=== PATIENT | female | born 2000 | race Caucasian/White ===

== ENCOUNTER 2021-12-06 09:34 | Outpatient (REF) | payer OTHER, SELFPAY ==
[2021-12-10 14:25] LABS: Immunoglobulin A 335 mg/dL (47-310)
[2021-12-10 17:36] LABS: Gliadin Deamidated IgG Ab <1.0 U/mL; Transglutaminase Ab IgG <1.0 U/mL; Transglutaminase IgA <1.0 U/mL
[2021-12-12 15:17] LABS: Endomysial IgA Antibody Negative (Negative)
== END 2021-12-06 09:35 | disposition home or self-care (01) ==
LOC: HO.MANLDS 09:34
PROVIDERS: Visit Provider Physician Assistant
DX: K90.41 Non-celiac gluten sensitivity (principal)
CPT/HCPCS: 36415; 82784; 86231; 86258; 86364

== ENCOUNTER 2023-01-14 18:58 | Inpatient (IN) | payer OTHER, SELFPAY ==
--- NOTE | 2023-01-14 19:08 | ED.GENADULT ---
HPI - General Adult General Chief complaint: Psychiatric Symptoms Stated complaint: SI/Mental Health Time Seen by Provider: 01/14/23 19:26 Source: patient Mode of arrival: ambulatory Limitations: no limitations History of Present Illness HPI narrative: Patient comes to the emergency room complaining of anxiety and depression. Patient states that for couple of weeks she has been feeling suicidal, plan to take pills and overdosing. Patient states that she has history of cutting, history of anxiety and depression. Patient states that recently she was started on an anti anxiety medication, thinks that her dose is too low. Patient has been having anxiety and depression since the patient was in middle school. At this time, patient complaining of suicidal ideation, anxiety and depression, no homicidal ideation. Patient states that she recently broke up with her boyfriend and was a ?icing on the cake that make her consider hurting herself and come to the hospital. Related Data Home Medications Medication Instructions Recorded Confirmed bupropion HCl 150 mg 24 hr tablet, 150 mg PO DAILY 01/14/23 01/14/23 extended release sertraline 25 mg tablet 25 mg PO DAILY 01/14/23 01/14/23 Allergies Allergy/AdvReac Type Severity Reaction Status Date / Time Penicillins Allergy Severe Anaphylaxis Verified 01/14/23 19:13 Review of Systems Review of Systems: Constitutional : No Weight loss, No Fever, No Chills, No Night Sweats, No Fatigue, No Malaise ENT/Mouth : No Hearing loss, No Ear Pain, No Nasal Congestion, No Sinus Pain, No Hoarseness, No sore throat, No Rhinorrhea, No Swallowing Difficulty Eyes: No Eye Pain, No Swelling, No Redness, No Foreign Body, No Discharge, No Vision Changes Cardiovascular : No Chest Pain, No SOB, No Dyspnea on Exertion, No Orthopnea, No Edema, No Palpitations Respiratory : No Cough, No Sputum, No Wheezing, No Smoke Exposure, No Dyspnea Gastrointestinal : No Nausea, No Vomiting, No Diarrhea, No Constipation, No abdominal Pain, No Hematochezia, No Melena Genitourinary : no irregular bleeding, No Dysuria, No Urinary Frequency, No Hematuria, No Urinary Incontinence, No Urgency, No Flank Pain, No Urinary Flow Changes, No Hesitancy Musculoskeletal : No joint pain, No Myalgias, No Joint Swelling Skin : No Skin Lesions, No rash Neuro : No Weakness, No Numbness, No Paresthesias, No Loss of Consciousness, No Dizziness, No Headache Psych : Complaining of anxiety and depression, suicidal ideation, no homicidal ideation Heme/Lymph: No Bruising, No Bleeding,No Lymphadenopathy Endocrine : No Polyuria, No Polydipsia, No Temperature Intolerance [facility] Past Medical History Medical History (Updated 01/14/23 @ 22:03 by Mendy Villareal MD) Anxiety and depression Social History Social History Advance Directives: No Advance Directives Information Provided: No Physical Exam ED Vital Signs: Vital Signs - 24 hr 01/14/23 19:12 01/15/23 05:55 Temperature 98.0 F 98.2 F Pulse Rate 102 H 74 Respiratory Rate 16 16 Blood Pressure 144/95 H 135/84 Pulse Oximetry 97 98 Oxygen Delivery Method Room Air Room Air BMI result Body Mass Index 72.2 Const Other: Appearance: Alert. Oriented X3. No acute distress. Eyes: Pupils equal, round and reactive to light. ENT: Pharynx normal. Neck: Normal inspection. Neck supple. No lymph nodes noted. No crepitus CVS: Normal heart rate and rhythm. Pulses normal. Normal S1 and S2 Respiratory: No respiratory distress. Breath sounds normal. No Wheezing. No rales Abdomen: Soft and nontender. No rigidity. No distention. Skin: Skin warm and dry. Normal skin color. Normal skin turgor. Extremities: No lower extremity edema. No Lacerations. No Rash Neuro: Oriented X 3. No motor deficit. No sensory deficit. Moving all extremities. No slurred speech. CN 2 through 12 grossly intact Psych: calm, cooperative, normal affect Course Course Course Narrative: RME- 22 year old female presents for evaluation of suicidal ideation. Symptoms worsening over the last week related to a break up. Patient endorses superficial cutting to arms and legs. Plan to overdose. Patient brought back to the behavioral POD after triage Reevaluation(s) Reevaluation #1: Physician observation continued she has been in observation since midnight. no acute events overnight currently asleep, VS stable, pending CARE team input. Medical Decision Making Medical Decision Making [facility] Narrative: -my interpretation of patient's labs: No acute abnormality in hematology chemistry urine toxicology. -care team consult pending -physician observation started at 22:00 -sign-out given to Dr. Liu Differential Diagnosis Differential Diagnoses: The differential diagnosis associated with the presentation includes (Anxiety, depression, substance abuse) Lab Data 01/14/23 19:38 01/14/23 19:38 Labs: Lab Results 01/14/23 01/14/23 01/14/23 Range/Units 19:38 19:38 19:38 WBC 7.8 (4.8-10.8) X10*3/uL RBC 4.65 (4.20-5.50) X10*6/uL Hgb 14.5 (12.0-16.0) g/dl Hct 43.0 (37.0-47.0) % MCV 92.5 (80.0-98.0) fL MCH 31.2 (27.0-33.0) pg MCHC 33.7 (31.0-35.0) g/dl RDW 12.9 (11.0-16.0) % Plt Count 310 (160-400) X10*3/uL MPV 10.1 (9.4-12.3) fL Immature Gran % (Auto) 0.1 (0.0-0.4) % Neut % (Auto) 69.2 (45-73) % Lymph % (Auto) 21.8 (20-40) % [place] % (Auto) 7.0 (2-11) % Eos % (Auto) 1.3 (0-4) % Baso % (Auto) 0.6 (0-2) % Lymph # (Auto) 1.7 (1.2-4.9) X10*3/uL [place] # (Auto) 0.5 (0.1-1.2) X10*3/uL Eos # (Auto) 0.1 (0.0-0.4) X10*3/uL Baso # (Auto) 0.1 (0.0-0.2) X10*3/uL Abs Immat Gran (auto) 0.01 (0.00-0.03) X10*3/uL Absolute Neuts (auto) 5.4 (2.0-8.3) x10*3/uL Absolute Nucleated RBC 0.000 (0.0-0.012) X10*3/uL Nucleated RBC % (auto) 0.0 (0.0-0.2) /100WBC Sodium 140 (135-145) mmol/L Potassium 3.9 (3.3-5.1) mmol/L Chloride 106 (96-108) mmol/L Carbon Dioxide 25 (22-29) mmol/L Anion Gap 13 (12-20) BUN 11 (9-16) mg/dL Creatinine 0.80 (0.5-1.4) mg/dL Estim Creat Clear Calc 183.6 Estimated GFR > 60 Random Glucose 98 (60-115) mg/dL Calcium 9.4 (8.4-10.2) mg/dL Total Bilirubin 0.4 (0.0-1.0) mg/dL AST 17 (5-31) U/L ALT 18 (0-31) U/L Alkaline Phosphatase 55 (39-117) U/L Total Protein 7.2 (6.5-8.0) g/dL Albumin 4.5 (3.5-5.0) g/dL Urine Color Urine Appearance Urine pH (5.0-9.0) Ur Specific [place] (1.005-1.025) Urine Protein (Neg-Trace) mg/dL Urine Glucose (UA) (Negative) mg/dL Urine Ketones (Negative) mg/dL Urine Blood (Negative) Urine Nitrite (Negative) Ur Leukocyte Esterase (Negative) Urine Test (NEGATIVE) Salicylates < 5.0 L (15-30) mg/dL Urine Opiates Screen (Not Detect) Urine Fentanyl Screen (Not Detect) Acetaminophen < 17 (<30) mcg/mL Ur Barbiturates Screen (Not Detect) Ur Phencyclidine Scrn (Not Detect) Ur Amphetamines Screen (Not Detect) U Benzodiazepines Scrn (Not Detect) Urine Cocaine Screen (Not Detect) U Marijuana (THC) Screen (Not Detect) Ethyl Alcohol < 10 mg/dL 01/14/23 01/14/23 01/14/23 Range/Units 19:38 19:40 19:40 WBC (4.8-10.8) X10*3/uL RBC (4.20-5.50) X10*6/uL Hgb (12.0-16.0) g/dl Hct (37.0-47.0) % MCV (80.0-98.0) fL MCH (27.0-33.0) pg MCHC (31.0-35.0) g/dl RDW (11.0-16.0) % Plt Count (160-400) X10*3/uL MPV (9.4-12.3) fL Immature Gran % (Auto) (0.0-0.4) % Neut % (Auto) (45-73) % Lymph % (Auto) (20-40) % [place] % (Auto) (2-11) % Eos % (Auto) (0-4) % Baso % (Auto) (0-2) % Lymph # (Auto) (1.2-4.9) X10*3/uL [place] # (Auto) (0.1-1.2) X10*3/uL Eos # (Auto) (0.0-0.4) X10*3/uL Baso # (Auto) (0.0-0.2) X10*3/uL Abs Immat Gran (auto) (0.00-0.03) X10*3/uL Absolute Neuts (auto) (2.0-8.3) x10*3/uL Absolute Nucleated RBC (0.0-0.012) X10*3/uL Nucleated RBC % (auto) (0.0-0.2) /100WBC Sodium (135-145) mmol/L Potassium (3.3-5.1) mmol/L Chloride (96-108) mmol/L Carbon Dioxide (22-29) mmol/L Anion Gap (12-20) BUN (9-16) mg/dL Creatinine (0.5-1.4) mg/dL Estim Creat Clear Calc Estimated GFR Random Glucose (60-115) mg/dL Calcium (8.4-10.2) mg/dL Total Bilirubin (0.0-1.0) mg/dL AST (5-31) U/L ALT (0-31) U/L Alkaline Phosphatase (39-117) U/L Total Protein (6.5-8.0) g/dL Albumin (3.5-5.0) g/dL Urine Color Yellow Urine Appearance Clear Urine pH 6.0 (5.0-9.0) Ur Specific [place] >= 1.030 H (1.005-1.025) Urine Protein Trace (Neg-Trace) mg/dL Urine Glucose (UA) Negative (Negative) mg/dL Urine Ketones Trace (Negative) mg/dL Urine Blood Negative (Negative) Urine Nitrite Negative (Negative) Ur Leukocyte Esterase Negative (Negative) Urine Test NEGATIVE (NEGATIVE) Salicylates (15-30) mg/dL Urine Opiates Screen Not Detected (Not Detect) Urine Fentanyl Screen Not Detected (Not Detect) Acetaminophen (<30) mcg/mL Ur Barbiturates Screen Not Detected (Not Detect) Ur Phencyclidine Scrn Not Detected (Not Detect) Ur Amphetamines Screen Not Detected (Not Detect) U Benzodiazepines Scrn Not Detected (Not Detect) Urine Cocaine Screen Not Detected (Not Detect) U Marijuana (THC) Screen Not Detected (Not Detect) Ethyl Alcohol mg/dL Discharge Plan Discharge Clinical Impression: Depression, Acute anxiety Patient Disposition: Still a Patient Prescriptions: No Action sertraline 25 mg tablet 25 mg PO DAILY bupropion HCl 150 mg tablet extended release 24 hr 150 mg PO DAILY Interventions: [place]-Suicide Risk Severity Scale Last Done: 01/15/23 00:55
[2023-01-14 19:12] VITALS: BP 144/95; PULSE 102; RESP 16; TEMP 36.7; O2SAT 97; BMI 72.2
[2023-01-14 19:45] LABS: MANUAL DIFF FLAG NO
[2023-01-14 19:50] LABS: Appearance Urine Clear; Color Urine Yellow; Glucose Urine UA Negative (Negative); Leukocyte Esterase Urine Negative (Negative); Nitrite Urine Negative (Negative); Specific Gravity - Urine >= 1.030 (1.005-1.025); UPreg QC Valid YES; Urine Blood Negative (Negative); Urine Ketones Trace mg/dL (Negative); Urine Pregnancy NEGATIVE (NEGATIVE); Urine Protein Trace mg/dL (Neg-Trace)
[2023-01-14 19:52] LABS: Basophils Absolute Auto 0.1 X10*3/uL (0.0-0.2); Basophils Percent Auto 0.6 % (0-2); Eosinophils Absolute Auto 0.1 X10*3/uL (0.0-0.4); Eosinophils Percent Auto 1.3 % (0-4); Hemoglobin 14.5 g/dl (12.0-16.0); Imm Gran Abs Auto 0.01 X10*3/uL (0.00-0.03); Imm Gran Pct Auto 0.1 % (0.0-0.4); Lymphocytes Absolute Auto 1.7 X10*3/uL (1.2-4.9); Lymphocytes Percent Auto 21.8 % (20-40); Mean Corpuscular HGB Conc 33.7 g/dl (31.0-35.0); Mean Corpuscular Hemoglobin 31.2 pg (27.0-33.0); Mean Corpuscular Volume 92.5 fL (80.0-98.0); Mean Platelet Volume 10.1 fL (9.4-12.3); Monocytes Absolute Auto 0.5 X10*3/uL (0.1-1.2); Neutrophils Absolute Auto 5.4 x10*3/uL (2.0-8.3); Neutrophils Percent Auto 69.2 % (45-73); Platelet Count 310 X10*3/uL (160-400); Red Blood Count 4.65 X10*6/uL (4.20-5.50); Red Cell Distribution Width 12.9 % (11.0-16.0); White Blood Count 7.8 X10*3/uL (4.8-10.8)
[2023-01-14 20:02] LABS: Amphetamine Screen Urine Not Detected (Not Detect); Barbiturates, Urine Not Detected (Not Detect); Benzodiazepines Screen Urine Not Detected (Not Detect); Cannabinoid Screen Urine Not Detected (Not Detect); Cocaine Screen Urine Not Detected (Not Detect); Fentanyl, urine Not Detected (Not Detect); Opiate Screen Urine Not Detected (Not Detect); Phencyclidine Screen Urine Not Detected (Not Detect)
[2023-01-14 20:08] LABS: Acetaminophen LAB < 17 mcg/mL (<30); Alanine Aminotransferase 18 U/L (0-31); Albumin Level 4.5 g/dL (3.5-5.0); Alkaline Phosphatase 55 U/L (39-117); Anion Gap 13 (12-20); Aspartate Amino Transferase 17 U/L (5-31); Bilirubin Total 0.4 mg/dL (0.0-1.0); Blood Urea Nitrogen 11 mg/dL (9-16); Calcium 9.4 mg/dL (8.4-10.2); Carbon Dioxide 25 mmol/L (22-29); Chloride 106 mmol/L (96-108); Creatinine Clr Calc Pharmacy 183.6; Estimated Glomerular Filt Rate > 60; Ethanol < 10 mg/dL; Glucose Random 98 mg/dL (60-115); Potassium 3.9 mmol/L (3.3-5.1); Salicylate < 5.0 mg/dL (15-30); Sodium 140 mmol/L (135-145); Total Protein 7.2 g/dL (6.5-8.0)
[2023-01-15 05:55] VITALS: BP 135/84; PULSE 74; RESP 16; TEMP 36.8; O2SAT 98
--- NOTE | 2023-01-15 06:02 | PC.NURSE ---
Patient slept through the night, no distress observed/reported, pending care team evaluation, VSS, behavior non concerning, med rec completed/pending provider's approval, labs completed/resulted, will continue to monitor.
[2023-01-15 11:48] LABS: COVID-19 Test Negative (Negative); IDNOW Serial# BCCEAD1C
[2023-01-15 12:05] VITALS: BP 119/73; PULSE 73; RESP 16; TEMP 36.4; O2SAT 98
--- NOTE | 2023-01-15 14:31 | PC.NURSE ---
Nafisa remained in her room resting for most of the shift. When engaged she was pleasant and cooperative. Nafisa had a visit from a friend and reports it went really well. No medications req or rec.
[2023-01-15 16:05] VITALS: BP 131/85; PULSE 81; TEMP 36.6
[2023-01-15] MEDS: hydrOXYzine HCL 25 MG TABLET PO ×2 (16:39→20:12)
--- NOTE | 2023-01-15 18:21 | PC.ADMIT ---
Nafisa was admitted to from [facility] P[facility] on a CV for Depression and SI. Pt self-presented with a worsening complaint of depression, anxiety and SI with a plan to ingest her anti-anxiety medications. Pt reported last Thursday she was holding a handful of her anxiety medications having thoughts of taking them all. Pt attributes worsening sx to a recent breakup. Pt is A+Ox4, pt hygiene is unremarkable, pt is pleasant and cooperative. Pt is anxious and depressed, affect is noncongruent as cheerful. Pt reports feeling nervous as it is her first psychiatric IPLOC. Pt denies SI/HI/AH/VH at this time. Pt verbalizes ability to come to staff if feeling suicidal or unsafe. PT thought process is linear and intact. Pt has had recent weight loss, reported she was on weight watchers and lost weight, but after finishing weight watchers lost more weight due to a decreased appetite. Pt reports over sleeping and still feeling tired. Pt is focused on treatment and getting the help she needs. Pt uses THC when not depressed, last use was months ago. Pt has a rash on left breast that spreads across her abdomen and up to her neck, accounts payable professional provider made aware. Pt signed all paper work and legals and reports feeling safe on the unit. Pt placed on 15 min checks. Provider made aware of admission, orders are placed. Begin treatment plan and monitor for safety.
--- NOTE | 2023-01-15 19:15 | PC.NURSE ---
Hospitalist application support intern notified of consult for rash on L breast spread across abdomen to neck.
--- NOTE | 2023-01-15 19:46 | PM.EVENT ---
Event Note Date of Service: 01/15/23 Event Note: We are asked to see this patient regarding a rash. This rash appeared about 2 weeks ago. Not associated with any new medications. Slightly itchy, spreading from her breath she has some spots on her abdomen and neck. No pain, no fever, no recent sick contacts, no recent travel, no recent outdoor activity. On exam patient is alert oriented, no apparent distress, able to answer questions appropriately See pictures for rash Likely Fungal infection Will order clotrimazole cream b.i.d. to be applied on rash until resolved Time Spent With Patient Time: Total time managing care of this patient today ____ minutes.
[2023-01-15] MEDS: traZODone HCL 50 MG TABLET PO (20:12)
[2023-01-15] MEDS: Clotrimazole 1 % Cream 15 GM TUBE 1 APPL TOPICAL (20:52)
[2023-01-16 08:10] VITALS: BP 142/76; PULSE 86; RESP 18; TEMP 36.5; O2SAT 98
[2023-01-16] MEDS: buPROPion HCl XL 150 MG TAB.ER.24H PO (09:01)
[2023-01-16] MEDS: Clotrimazole 1 % Cream 15 GM TUBE 1 APPL TOPICAL ×2 (09:03→19:59)
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
--- NOTE | 2023-01-16 12:39 | MHC.CARE ---
initial precertification [facility] ph: [phone] f: [phone] precert# [id number] Precert starts 01/15/23 and Anaya will follow up with concurrent review
[2023-01-16 19:53] VITALS: BP 116/58; PULSE 84; TEMP 36.9
[2023-01-16] MEDS: traZODone HCL 50 MG TABLET PO (19:58)
[2023-01-16] MEDS: cloNIDine HCL 0.1 MG TABLET PO (19:58)
[2023-01-17] MEDS: cloNIDine HCL 0.1 MG TABLET PO ×2 (09:28→21:44)
[2023-01-17] MEDS: buPROPion HCl XL 300 MG TAB.ER.24H PO (09:29)
[2023-01-17] MEDS: Clotrimazole 1 % Cream 15 GM TUBE 1 APPL TOPICAL (09:31)
[2023-01-17 09:32] VITALS: BP 120/73; PULSE 84; RESP 18; TEMP 36.2
--- NOTE | 2023-01-17 15:50 | P.PNPSI_ITS ---
Subjective Subjective Date of Service: 01/17/23 Reason For Visit: depression Subjective Notes: Conditional Voluntary Interim History: Met patient. Discussed with Nursing. Chart reviewed. Overall patient reports feeling positive regarding Wellbutrin increase. Feeling less depressed and less anxious. Spending more time in the milieu. Sleep energy and appetite good. No suicidal thoughts. Medication Compliance: Yes Side effects from medications: No Attending Groups: Yes Review of Systems Acute medical concerns: No Review of Systems Review of Systems Yes all other systems are reviewed and are negative Mental Status Exam Mental Status Exam Narrative: Pleasant. Engaged. Fairly presented. Organized. Less anxious. No SI. No HI. No agitation psychosis. Insight and judgment fair Diagnostics Vital Signs (24Hr): Vital Signs - 24 hr 01/16/23 19:53 01/17/23 09:32 Temperature 98.4 F 97.2 F Pulse Rate 84 84 Respiratory Rate 18 Blood Pressure 116/58 L 120/73 Oxygen Delivery Method Room Air BMI result Body Mass Index 72.2 Labs 01/14/23 19:38 01/14/23 19:38 Medications Medications Current Medications Acetaminophen (Acetaminophen 325 Mg Tablet) 650 mg PO Q6H PRN PRN Reason: Headache/Pain Mild Scale (1-3) Al Hydroxide/Mg Hydroxide (Magnesium Hydrox/Alum Hydrox 30 Ml Oral.Susp) 30 ml PO Q6H PRN PRN Reason: Heartburn/Nausea Bupropion HCl (Bupropion Hcl Xl 300 Mg Tab.Er.24h) 300 mg PO DAILY PETROS Last Admin: 01/17/23 09:29 Dose: 300 mg Clonidine HCl (Clonidine Hcl 0.1 Mg Tablet) 0.1 mg PO Q4H PRN; Protocol PRN Reason: anxiety Last Admin: 01/16/23 19:58 Dose: 0.1 mg Clonidine HCl (Clonidine Hcl 0.1 Mg Tablet) 0.1 mg PO DAILY PETROS; Protocol Last Admin: 01/17/23 09:28 Dose: 0.1 mg Clotrimazole (Clotrimazole 1 % Cream 15 Gm Tube) 1 appl TOPICAL BID PETROS; Protoc ol Last Admin: 01/17/23 09:31 Dose: 1 appl Hydroxyzine HCl (Hydroxyzine Hcl 25 Mg Tablet) 25 mg PO Q6H PRN PRN Reason: Anxiety Last Admin: 01/15/23 16:39 Dose: 25 mg Magnesium Hydroxide (Milk Of Magnesia 30 Ml Oral.Susp) 30 ml PO DAILY PRN PRN Reason: Constipation Nicotine Polacrilex (Nicotine Polacrilex 2 Mg Gum) 4 mg BUCCAL Q2H PRN PRN Reason: Nicotine Cravings Trazodone HCl (Trazodone Hcl 50 Mg Tablet) 50 mg PO BEDTIME MRX1 PRN PRN Reason: Insomnia Last Admin: 01/16/23 19:58 Dose: 50 mg Allergies Allergies Allergy/AdvReac Type Severity Reaction Status Date / Time Penicillins Allergy Severe Anaphylaxis Verified 01/14/23 19:13 Assessment & Plan Assessment & Plan (1) MDD (major depressive disorder), recurrent severe, without psychosis: Status: Acute Code(s): F33.2 - Major depressive disorder, recurrent severe without psychotic features (2) PTSD (post-traumatic stress disorder): Status: Acute Code(s): F43.10 - Post-traumatic stress disorder, unspecified (3) ADHD: Status: Acute Code(s): F90.9 - Attention-deficit hyperactivity disorder, unspecified type (4) Panic disorder with agoraphobia: Status: Acute Code(s): F40.01 - Agoraphobia with panic disorder Plan Patient is a 22 yo female with history of depression, PTSD, social anxiety, ADHD who presents for worsening depression and SI, with plan and nearing intent, in the face of untreated depression and psychosocial stressors. -history of depression starting in very early adolescents, untreated other than therapy (which was partially helpful); depression worsened by severe bullying in high school, with subsequent PTSD. Contributory is panic attacks with intermittent mild agoraphobia. Patient has ADHD and was on Adderall in the past however it worsened anxiety so discontinued, which could also be contribute to depression. -Thankfully supportive relationship with family; no drug or alcohol abuse. Patient seeking treatment. Plan: CV Q 15 minute checks 1. Increase Wellbutrin XL to 300 mg daily; patient was started on 150 mg for weight loss; while this would not be the 1st choice for depression, she is already on it, tolerating current dose and her father's depression has been well treated by same medication 2. Start clonidine scheduled at bedtime for nightmares and p.r.n. during the day for anxiety; patient has tolerated the past -gather collateral -help w/ aftercare; possible Partial day program 01/17/2023: No changes to treatment plan Reason for continued inpatient stay Substantial Risk for: harm to self Time Spent With Patient Time: Total time managing care of this patient today ____ minutes.
[2023-01-17 18:00] VITALS: BP 122/78; PULSE 78; RESP 16; TEMP 36.6; O2SAT 98
[2023-01-17] MEDS: traZODone HCL 50 MG TABLET PO (21:44)
[2023-01-18 08:34] VITALS: BP 109/59; PULSE 93; RESP 18; TEMP 36.2; O2SAT 97
[2023-01-18] MEDS: cloNIDine HCL 0.1 MG TABLET PO (08:35)
[2023-01-18] MEDS: buPROPion HCl XL 300 MG TAB.ER.24H PO (08:35)
[2023-01-18] MEDS: Clotrimazole 1 % Cream 15 GM TUBE 1 APPL TOPICAL ×2 (09:10→20:59)
--- NOTE | 2023-01-18 12:45 | HO.PSYCHPN ---
Subjective Subjective Date of Service: 01/18/23 Reason For Visit: depression Interim History: Met patient. Discussed with Nursing. Chart reviewed. Overall patient continues to report feeling positive regarding Wellbutrin increase. Feeling less depressed and less anxious. Sleep energy and appetite good. No suicidal thoughts. Started to consider dispo planning Medication Compliance: Yes Side effects from medications: No Attending Groups: Yes Review of Systems Acute medical concerns: No Review of Systems Review of Systems Yes all other systems are reviewed and are negative Mental Status Exam Mental Status Exam Narrative: Pleasant. Engaged. Fairly presented. Organized. Less anxious. No SI. No HI. No agitation psychosis. Insight and judgment fair Diagnostics Vital Signs (24Hr): Vital Signs - 24 hr 01/17/23 18:00 01/18/23 08:34 Temperature 97.8 F 97.2 F Pulse Rate 78 93 Respiratory Rate 16 18 Blood Pressure 122/78 109/59 L Pulse Oximetry 98 97 Oxygen Delivery Method Room Air Room Air BMI result Body Mass Index 72.2 Labs 01/14/23 19:38 01/14/23 19:38 Medications Medications Current Medications Acetaminophen (Acetaminophen 325 Mg Tablet) 650 mg PO Q6H PRN PRN Reason: Headache/Pain Mild Scale (1-3) Al Hydroxide/Mg Hydroxide (Magnesium Hydrox/Alum Hydrox 30 Ml Oral.Susp) 30 ml PO Q6H PRN PRN Reason: Heartburn/Nausea Bupropion HCl (Bupropion Hcl Xl 300 Mg Tab.Er.24h) 300 mg PO DAILY PETROS Last Admin: 01/18/23 08:35 Dose: 300 mg Clonidine HCl (Clonidine Hcl 0.1 Mg Tablet) 0.1 mg PO Q4H PRN; Protocol PRN Reason: anxiety Last Admin: 01/17/23 21:44 Dose: 0.1 mg Clonidine HCl (Clonidine Hcl 0.1 Mg Tablet) 0.1 mg PO DAILY PETROS; Protocol Last Admin: 01/18/23 08:35 Dose: 0.1 mg Clotrimazole (Clotrimazole 1 % Cream 15 Gm Tube) 1 appl TOPICAL BID PETROS; Protocol Last Admin: 01/18/23 09:10 Dose: 1 appl Hydroxyzine HCl (Hydroxyzine Hcl 25 Mg Tablet) 25 mg PO Q6H PRN PRN Reason: Anxiety Last Admin: 01/15/23 16:39 Dose: 25 mg Magnesium Hydroxide (Milk Of Magnesia 30 Ml Oral.Susp) 30 ml PO DAILY PRN PRN Reason: Constipation Nicotine Polacrilex (Nicotine Polacrilex 2 Mg Gum) 4 mg BUCCAL Q2H PRN PRN Reason: Nicotine Cravings Trazodone HCl (Trazodone Hcl 50 Mg Tablet) 50 mg PO BEDTIME MRX1 PRN PRN Reason: Insomnia Last Admin: 01/17/23 21:44 Dose: 50 mg Allergies Allergies Allergy/AdvReac Type Severity Reaction Status Date / Time Penicillins Allergy Severe Anaphylaxis Verified 01/14/23 19:13 Assessment & Plan Assessment & Plan (1) MDD (major depressive disorder), recurrent severe, without psychosis: Status: Acute Code(s): F33.2 - Major depressive disorder, recurrent severe without psychotic features (2) PTSD (post-traumatic stress disorder): Status: Acute Code(s): F43.10 - Post-traumatic stress disorder, unspecified (3) ADHD: Status: Acute Code(s): F90.9 - Attention-deficit hyperactivity disorder, unspecified type (4) Panic disorder with agoraphobia: Status: Acute Code(s): F40.01 - Agoraphobia with panic disorder Plan Patient is a 22 yo female with history of depression, PTSD, social anxiety, ADHD who presents for worsening depression and SI, with plan and nearing intent, in the face of untreated depression and psychosocial stressors. -history of depression starting in very early adolescents, untreated other than therapy (which was partially helpful); depression worsened by severe bullying in high school, with subsequent PTSD. Contributory is panic attacks with intermittent mild agoraphobia. Patient has ADHD and was on Adderall in the past however it worsened anxiety so discontinued, which could also be contribute to depression. -Thankfully supportive relationship with family; no drug or alcohol abuse. Patient seeking treatment. Plan: CV Q 15 minute checks 1. Increase Wellbutrin XL to 300 mg daily; patient was started on 150 mg for weight loss; while this would not be the 1st choice for depression, she is already on it, tolerating current dose and her father's depression has been well treated by same medication 2. Start clonidine scheduled at bedtime for nightmares and p.r.n. during the day for anxiety; patient has tolerated the past -gather collateral -help w/ aftercare; possible Partial day program 01/18/2023: Adjusted hydroxyzine dose, otherwise no changes to treatment plan Reason for continued inpatient stay Substantial Risk for: harm to self Time Spent With Patient Time: Total time managing care of this patient today ____ minutes.
[2023-01-18 18:00] VITALS: BP 118/76; PULSE 99; RESP 16; TEMP 36; O2SAT 98
[2023-01-18] MEDS: traZODone HCL 50 MG TABLET PO (20:55)
[2023-01-18] MEDS: hydrOXYzine HCL 50 MG TABLET PO (20:55)
[2023-01-19] MEDS: cloNIDine HCL 0.1 MG TABLET PO (07:54)
[2023-01-19 07:55] VITALS: BP 104/60; PULSE 78; RESP 16; TEMP 36.1; O2SAT 97
[2023-01-19] MEDS: buPROPion HCl XL 300 MG TAB.ER.24H PO (07:55)
--- NOTE | 2023-01-19 09:50 | P.PNPSI_ITS ---
Subjective Subjective Date of Service: 01/19/23 Reason For Visit: depression Interim History: With patient; discussed with team; reviewed progress notes Patient reports feeling much better. She feels that increased Wellbutrin has significantly improved her mood and that depression is abating. Denies any SI at all. She says anxiety remains however clonidine has been helping and at this point patient would like to see if therapy can help resolve anxiety further rather than start another medication at this time. Patient feels ready for discharge. Her boyfriend has been visiting daily and she feels ready to return home. Looking for to outpatient therapy and services. Mental Status Exam Mental Status Exam Narrative: Pt is alert and oriented; behavior is cooperative, friendly and calm; patient is not in distress; dressed in casual attire with adequate hygiene; mood is described as better and affect congruent; eye contact appropriate, brighter; Speech is normal rate, volume and prosody and not pressured; no psychomotor retardation present; thought process is organized and goal directed; Thought content is feeling better and ready for discharge; outpatient treatment; otherwise pertinent to relevant topics and without any delusional content, paranoid ideations or grandiosity; no SI/no HI. There is no evidence of perceptual disturbance and denies AVH. Patients insight and judgment fair and adequate. Diagnostics Vital Signs (24Hr): Vital Signs - 24 hr 01/18/23 18:00 01/19/23 07:55 Temperature 96.8 F 97 F Pulse Rate 99 78 Respiratory Rate 16 16 Blood Pressure 118/76 104/60 Pulse Oximetry 98 97 Oxygen Delivery Method Room Air Room Air BMI result Body Mass Index 72.2 Labs 01/14/23 19:38 01/14/23 19:38 Medications Medications Current Medications Acetaminophen (Acetaminophen 325 Mg Tablet) 650 mg PO Q6H PRN PRN Reason: Headache/Pain Mild Scale (1-3) Al Hydroxide/Mg Hydroxide (Magnesium Hydrox/Alum Hydrox 30 Ml Oral.Susp) 30 ml PO Q6H PRN PRN Reason: Heartburn/Nausea Bupropion HCl (Bupropion Hcl Xl 300 Mg Tab.Er.24h) 300 mg PO DAILY PETROS Last Admin: 01/19/23 07:55 Dose: 300 mg Clonidine HCl (Clonidine Hcl 0.1 Mg Tablet) 0.1 mg PO Q4H PRN; Protocol PRN Reason: anxiety Last Admin: 08/26/23 21:44 Dose: 0.1 mg Clonidine HCl (Clonidine Hcl 0.1 Mg Tablet) 0.1 mg PO DAILY PETROS; Protocol Last Admin: 01/19/23 07:54 Dose: 0.1 mg Clotrimazole (Clotrimazole 1 % Cream 15 Gm Tube) 1 appl TOPICAL BID PETROS; Protocol Last Admin: 01/19/23 08:42 Dose: Not Given Hydroxyzine HCl (Hydroxyzine Hcl 50 Mg Tablet) 50 mg PO Q6H PRN PRN Reason: Anxiety Last Admin: 01/18/23 20:55 Dose: 50 mg Magnesium Hydroxide (Milk Of Magnesia 30 Ml Oral.Susp) 30 ml PO DAILY PRN PRN Reason: Constipation Nicotine Polacrilex (Nicotine Polacrilex 2 Mg Gum) 4 mg BUCCAL Q2H PRN PRN Reason: Nicotine Cravings Trazodone HCl (Trazodone Hcl 50 Mg Tablet) 50 mg PO BEDTIME MRX1 PRN PRN Reason: Insomnia Last Admin: 01/18/23 20:55 Dose: 50 mg Allergies Allergies Allergy/AdvReac Type Severity Reaction Status Date / Time Penicillins Allergy Severe Anaphylaxis Verified 01/14/23 19:13 Assessment & Plan Assessment & Plan (1) MDD (major depressive disorder), recurrent severe, without psychosis: Status: Acute Code(s): F33.2 - Major depressive disorder, recurrent severe without psychotic features (2) PTSD (post-traumatic stress disorder): Status: Acute Code(s): F43.10 - Post-traumatic stress disorder, unspecified (3) ADHD: Status: Acute Code(s): F90.9 - Attention-deficit hyperactivity disorder, unspecified type (4) Panic disorder with agoraphobia: Status: Acute Code(s): F40.01 - Agoraphobia with panic disorder Plan Patient is a 22 yo female with history of depression, PTSD, social anxiety, ADHD who presents for worsening depression and SI, with plan and nearing intent, in the face of untreated depression and psychosocial stressors. -history of depression starting in very early adolescents, untreated other than therapy (which was partially helpful); depression worsened by severe bullying in high school, with subsequent PTSD. Contributory is panic attacks with intermittent mild agoraphobia. Patient has ADHD and was on Adderall in the past however it worsened anxiety so discontinued, which could also be contribute to depression. -Thankfully supportive relationship with family; no drug or alcohol abuse. Patient seeking treatment. Hospital course: On admission Wellbutrin increased to 300 mg daily; 01/18/2023: Adjusted hydroxyzine dose, otherwise no changes to treatment plan 01/19 continuing from over the weekend, Patient reports feeling much better. She feels that increased Wellbutrin has significantly improved her mood and that depression is abating. Denies any SI at all. She says anxiety remains however clonidine has been helping and at this point patient would like to see if therapy can help resolve anxiety further rather than start another medication at this time. Patient feels ready for discharge. Her boyfriend has been visiting daily and she feels ready to return home. Looking for to outpatient therapy and services -patient is significantly improved; she has outpatient support from her family and boyfriend. Patient also has history of reach out for help. She is feeling rather to return home and is not in imminent risk for harm to self or others. Plan: CV Q 15 minute checks Continue Wellbutrin XL to 300 mg daily; patient was started on 150 mg for weight loss; while this would not be the 1st choice for depression, she is already on it, tolerating current dose and her father's depression has been well treated by same medication Continue clonidine scheduled at bedtime for nightmares and p.r.n. during the day for anxiety; patient has tolerated the past -gather collateral -help w/ aftercare; possible Partial day program Patient educated on: diagnosis, medication risk/benefits and therapeutic st rategies Informed Consent: understands Reason for continued inpatient stay Substantial Risk for: stable for discharge Time Spent With Patient Time: Total time managing care of this patient today ____ minutes.
[2023-01-19 18:26] VITALS: BP 115/61; PULSE 93; TEMP 36.4
--- NOTE | 2023-01-19 20:20 | PM.PSYDC ---
DS: Providers Provider Date of Service: 01/20/23 Date of admission: 01/15/23 12:40 Date of discharge: 01/20/23 Primary care physician: Ronaldo Urbina MD Attending physician on admission: Param Dugan Consults: 01/15/23 10:58 Consult to Hospitalist Routine Comment: Consulting Provider: Hospitalist Reason For Exam: rash on left breast and abdomen Attending physician on discharge: Param Dugan DS: Diagnosis Discharge Diagnosis (1) MDD (major depressive disorder), recurrent severe, without psychosis: Status: Acute (2) PTSD (post-traumatic stress disorder): Status: Acute (3) ADHD: Status: Acute (4) Panic disorder with agoraphobia: Status: Acute DS: Medications Discharge Medications Home Medications: Home Medications Medication Instructions Recorded Confirmed bupropion HCl 150 mg 24 hr tablet, 150 mg PO DAILY 01/14/23 01/14/23 extended release sertraline 25 mg tablet 25 mg PO DAILY 01/14/23 01/14/23 Mental Status Exam Mental Status Exam Narrative: Pt is alert and oriented; behavior is cooperative, friendly and calm; patient is not in distress; dressed in casual attire with adequate hygiene; mood is described as good and affect congruent; eye contact appropriate, brighter; Speech is normal rate, volume and prosody and not pressured; no psychomotor retardation present; thought process is organized and goal directed; Thought content is feeling better and ready for discharge; outpatient treatment; otherwise pertinent to relevant topics and without any delusional content, paranoid ideations or grandiosity; no SI/no HI. There is no evidence of perceptual disturbance and denies AVH. Patients insight and judgment fair and adequate. Data Data Completed and Pending Completed studies during hospitalization [Text1]: 01/14/23 01/14/23 01/14/23 19:38 19:38 19:38 WBC 7.8 RBC 4.65 Hgb 14.5 Hct 43.0 MCV 92.5 MCH 31.2 MCHC 33.7 RDW 12.9 Plt Count 310 MPV 10.1 Immature Gran % (Auto) 0.1 Neut % (Auto) 69.2 Lymph % (Auto) 21.8 [place] % (Auto) 7.0 Eos % (Auto) 1.3 Baso % (Auto) 0.6 Lymph # (Auto) 1.7 [place] # (Auto) 0.5 Eos # (Auto) 0.1 Baso # (Auto) 0.1 Abs Immat Gran (auto) 0.01 Absolute Neuts (auto) 5.4 Absolute Nucleated RBC 0.000 Nucleated RBC % (auto) 0.0 Sodium 140 Potassium 3.9 Chloride 106 Carbon Dioxide 25 Anion Gap 13 BUN 11 Creatinine 0.80 Estim Creat Clear Calc 183.6 Estimated GFR > 60 Random Glucose 98 Calcium 9.4 Total Bilirubin 0.4 AST 17 ALT 18 Alkaline Phosphatase 55 Total Protein 7.2 Albumin 4.5 Urine Color Urine Appearance Urine pH Ur Specific [place] Urine Protein Urine Glucose (UA) Urine Ketones Urine Blood Urine Nitrite Ur Leukocyte Esterase Urine Test Salicylates < 5.0 L Urine Opiates Screen Urine Fentanyl Screen Acetaminophen < 17 Ur Barbiturates Screen Ur Phencyclidine Scrn Ur Amphetamines Screen U Benzodiazepines Scrn Urine Cocaine Screen U Marijuana (THC) Screen Ethyl Alcohol < 10 COVID-19 (NAVI) COVID-19 [employer] 01/14/23 01/14/23 01/14/23 19:38 19:40 19:40 WBC RBC Hgb Hct MCV MCH MCHC RDW Plt Count MPV Immature Gran % (Auto) Neut % (Auto) Lymph % (Auto) [place] % (Auto) Eos % (Auto) Baso % (Auto) Lymph # (Auto) [place] # (Auto) Eos # (Auto) Baso # (Auto) Abs Immat Gran (auto) Absolute Neuts (auto) Absolute Nucleated RBC Nucleated RBC % (auto) Sodium Potassium Chloride Carbon Dioxide Anion Gap BUN Creatinine Estim Creat Clear Calc Estimated GFR Random Glucose Calcium Total Bilirubin AST ALT Alkaline Phosphatase Total Protein Albumin Urine Color Yellow Urine Appearance Clear Urine pH 6.0 Ur Specific [place] >= 1.030 H Urine Protein Trace Urine Glucose (UA) Negative Urine Ketones Trace Urine Blood Negative Urine Nitrite Negative Ur Leukocyte Esterase Negative Urine Test NEGATIVE Salicylates Urine Opiates Screen Not Detected Urine Fentanyl Screen Not Detected Acetaminophen Ur Barbiturates Screen Not Detected Ur Phencyclidine Scrn Not Detected Ur Amphetamines Screen Not Detected U Benzodiazepines Scrn Not Detected Urine Cocaine Screen Not Detected U Marijuana (THC) Screen Not Detected Ethyl Alcohol COVID-19 (NAVI) COVID-19 [employer] 01/15/23 11:04 WBC RBC Hgb Hct MCV MCH MCHC RDW Plt Count MPV Immature Gran % (Auto) Neut % (Auto) Lymph % (Auto) [place] % (Auto) Eos % (Auto) Baso % (Auto) Lymph # (Auto) [place] # (Auto) Eos # (Auto) Baso # (Auto) Abs Immat Gran (auto) Absolute Neuts (auto) Absolute Nucleated RBC Nucleated RBC % (auto) Sodium Potassium Chloride Carbon Dioxide Anion Gap BUN Creatinine Estim Creat Clear Calc Estimated GFR Random Glucose Calcium Total Bilirubin AST ALT Alkaline Phosphatase Total Protein Albumin Urine Color Urine Appearance Urine pH Ur Specific [place] Urine Protein Urine Glucose (UA) Urine Ketones Urine Blood Urine Nitrite Ur Leukocyte Esterase Urine Test Salicylates Urine Opiates Screen Urine Fentanyl Screen Acetaminophen Ur Barbiturates Screen Ur Phencyclidine Scrn Ur Amphetamines Screen U Benzodiazepines Scrn Urine Cocaine Screen U Marijuana (THC) Screen Ethyl Alcohol COVID-19 (NAVI) Negative COVID-19 Clin Com See Note DS: Summary Hospital Course Hospital Course: HPI: Patient is a 22 yo female with history of depression, PTSD, social anxiety, ADHD who presents for worsening depression and SI, with plan and nearing intent, in the face of untreated depression and psychosocial stressors.? -history of depression starting in very early adolescents, untreated other than therapy (which was partially helpful); depression worsened by severe bullying in high school, with subsequent PTSD.? Contributory is panic attacks with intermittent mild agoraphobia.? Patient has ADHD and was on Adderall in the past however it worsened anxiety so discontinued, which could also be contribute to depression. -Thankfully supportive relationship with family; no drug or alcohol abuse.? Patient seeking treatment. Hospital course: On admission Wellbutrin increased to 300 mg daily; ?01/18/2023: Adjusted hydroxyzine dose, otherwise no changes to treatment plan 01/19 continuing from over the weekend, Patient reports feeling much better.? She feels that increased Wellbutrin has significantly improved her mood and that depression is abating.? Denies any SI at all.? She says anxiety remains, however clonidine has been helping and at this point patient would like to see if therapy can help resolve anxiety further rather than start another medication at this time.? Patient feels ready for discharge.? Her boyfriend has been visiting daily and she feels ready to return home.? Looking for to outpatient therapy and services -patient is significantly improved; she has outpatient support from her family and boyfriend.? Patient also has history of reach out for help.? She is feeling rather to return home and is not in imminent risk for harm to self or others. Time spent discussing smoking cessation with patient: 3 to 10 minutes Status at Discharge Functional status at discharge: independent ambulation Overall status at discharge: patient is back to baseline Time Spent with Patient Time attestation: Total time managing care of this patient today ____ minutes. Discharge Plan Discharge Anticipated Discharge Date/Time: 01/20/23 23:30 Patient Disposition: Home, Self-Care Discharge Diagnosis: MDD, recurrent, severe without psychosis, in full remission Referrals: Ronaldo Urbina MD [Primary Care Provider] - 1 Week Discharge Medications: New clonidine HCl 0.1 mg Tablet 0.1 mg PO Q4H PRN (Reason: anxiety) 30 Days Qty: 90 1RF Protocol: Hold for SBP< HOLD for SBP < : 90 bupropion HCl 300 mg Tablet Extended Release 24 Hr 300 mg PO DAILY 30 Days Qty: 30 1RF Discontinued sertraline 25 mg tablet 25 mg PO DAILY bupropion HCl 150 mg tablet extended release 24 hr 150 mg PO DAILY Discharge Orders: Discharge Order (Routine); Ordered 01/20/23 Ordered By: Param Dugan Diet: Regular diet Activity on Discharge: As tolerated Stand Alone Forms: Patient Portal Discharge page, Community Support Care Plan Goals: Maintain mood and safe behaviors Take medications as prescribed Practice coping skills Continue with outpatient providers and reach out to them as needed Health Concerns: Mood stability and behaviors Plan of Treatment: Follow up with your PCP, psychiatric provider and other outpatient providers regarding above concerns Take medications as prescribed Assessment: Risk assessment at time of discharge:? Patient was interviewed prior to discharge and found to be fully oriented and without any SI or HI. Patient has insight and demonstrates good judgment in terms of wanting to pursue treatment. Patient is not in imminent risk of harm to self or others and has a safety plan that includes presenting to the closest ER or calling 911 if feeling unsafe.? Patient has been observed closely by nursing and unit staff throughout admission; patient has not engaged in any behaviors that suggest dangerousness to self or others and has demonstrated appropriate behaviors and impulse control
[2023-01-19] MEDS: hydrOXYzine HCL 50 MG TABLET PO (20:25)
[2023-01-19] MEDS: Clotrimazole 1 % Cream 15 GM TUBE 1 APPL TOPICAL (20:25)
[2023-01-19] MEDS: traZODone HCL 50 MG TABLET PO (20:25)
[2023-01-20 08:20] VITALS: BP 117/75; PULSE 91; RESP 18; TEMP 35.8; O2SAT 100
[2023-01-20] MEDS: cloNIDine HCL 0.1 MG TABLET PO (08:47)
[2023-01-20] MEDS: buPROPion HCl XL 300 MG TAB.ER.24H PO (08:48)
[2023-01-20] MEDS: Clotrimazole 1 % Cream 15 GM TUBE 1 APPL TOPICAL (08:48)
== END 2023-01-20 11:35 | disposition home or self-care (01) | DRG 885 ==
LOC: HO.ED 22:03 → HO.PM5 01-15 12:56
PROVIDERS: Emergency Medicine; Physician Assistant; Admitting Provider Psychiatry & Neurology Psychiatry; Emergency Provider Emergency Medicine; PCP Internal Medicine; Visit Provider Psychiatry & Neurology Psychiatry
DX: F33.2 Major depressive disorder, recurrent severe without psychotic features (principal); R45.851 Suicidal ideations; F90.9 Attention-deficit hyperactivity disorder, unspecified type; B36.9 Superficial mycosis, unspecified; F43.10 Post-traumatic stress disorder, unspecified; F40.01 Agoraphobia with panic disorder; Z20.822 Contact with and (suspected) exposure to COVID-19; Z91.52 Personal history of nonsuicidal self-harm; Z79.899 Other long term (current) drug therapy
CPT/HCPCS: 36415; 80053; 80143; 80179; 80307; 81003; 81025; 85025; 87635; 99285; S9485

== ENCOUNTER → 2023-01-15 12:40 | Outpatient (BNV) | payer OTHER, SELFPAY | PROVIDERS: Admitting Provider Psychiatry & Neurology Psychiatry; Emergency Provider Emergency Medicine; PCP Internal Medicine; Visit Provider Psychiatry & Neurology Psychiatry | DX: F33.2 Major depressive disorder, recurrent severe without psychotic features (principal); F43.11 Post-traumatic stress disorder, acute; F90.9 Attention-deficit hyperactivity disorder, unspecified type; F40.01 Agoraphobia with panic disorder | CPT/HCPCS: 90792; 99231; 99232; 99238 ==

== ENCOUNTER 2023-01-31 15:14 | Emergency (ER) | payer OTHER, SELFPAY ==
[2023-01-31 16:43] VITALS: BP 134/80; PULSE 97; RESP 18; TEMP 37.5; O2SAT 96; BMI 34.6
--- NOTE | 2023-01-31 17:26 | ED.EAR ---
HPI - Ear Problem General Chief complaint: Ear Problems Stated complaint: Med reaction Time Seen by Provider: 01/31/23 17:03 Source: patient Mode of arrival: ambulatory Limitations: no limitations History of Present Illness HPI Narrative: Patient is a 22 year old female with a PMH of MDD who presents to the ED due to left ear pain. She reports that she had a sore throat and noticed some ear pain the end of last week, which prompted her to see her PCP. By the time she saw her PCP, her sore throat had resolved but she was prescribed azithromycin 250 mg x 5 days and oral ciprofloxacin 500 mg x about a week. She reports that the antibiotics did not alleviate her symptoms. She also experiences decreased hearing in her left ear and describes it as if she's under water. Patient denies experiencing a fever or drainage from the affected ear. Related Data Previous Rx's Medication Instructions Recorded bupropion HCl 300 mg 24 hr tablet, 300 mg PO DAILY 30 days #30 tabs 01/20/23 extended release clonidine HCl 0.1 mg tablet 0.1 mg PO Q4H PRN anxiety 30 days 01/20/23 #90 tabs clindamycin HCl 150 mg capsule 150 mg PO TID #21 caps 01/31/23 ofloxacin 0.3 % ear drops 10 drp otic (ears) DAILY 7 days 01/31/23 #10 mL Allergies Allergy/AdvReac Type Severity Reaction Status Date / Time Penicillins Allergy Anaphylaxis Verified 01/31/23 16:43 Review of Systems Review of Systems: Yes all other systems are reviewed and are negative Constitutional: Constitutional: Reports no additional constitutional complaints, Denies body ache(s), Denies chills, Denies fever(s), Denies headache(s) and Denies weakness Eyes: Eyes: Reports no additional eye complaints and Denies change in vision ENT: Reports system reviewed and no additional complaints, except as documented, Denies dizziness, Denies ear discharge, Reports otalgia, Denies headache(s), Denies nasal congestion, Denies nasal discharge and Denies neck pain Cardiovascular: Cardiovascular: Reports no additional cardiovascular complaints, Denies chest pain, Denies leg edema and Denies dyspnea Respiratory: Respiratory: Reports no additional respiratory complaints, Denies cough and Denies dyspnea Gastrointestinal: Gastrointestinal: Reports no additional gastrointestinal complaints, Denies abdominal pain, Denies diarrhea, Denies nausea and Denies vomiting Genitourinary: Genitourinary: Reports no additional female genitourinary complaints and Denies urinary incontinence Musculoskeletal: Musculoskeletal: Reports no additional musculoskeletal complaints, Denies back pain, Denies arthralgias, Denies joint swelling, Denies neck pain, Denies numbness and Denies tingling Integumentary/Breasts: Skin/Breast: Reports system reviewed and no additional complaints, except as docu and Denies rash Neurologic: Reports system reviewed and no additional complaints, except as documented, Denies Abnormal speech present, Denies dizziness, Denies headache(s), Denies numbness, Denies tingling and Denies weakness PMFSH Past Medical History Attestation statement: The following information was validated with the patient. Source: old records reviewed and nursing notes reviewed Medical History Panic disorder with agoraphobia ADHD PTSD (post-traumatic stress disorder) MDD (major depressive disorder), recurrent severe, without psychosis Anxiety and depression Social History Social History Household Members Other:: parents sister Housing: House Patient Tobacco Use Status: Never used Tobacco e-Cigarette/Vaping Use: Never Used Second Hand Smoke Exposure: No Substance Use Type: Marijuana Advance Directives: No Advance Directives Information Provided: No service: No Sexual orientation: Straight/Heterosexual Physical Exam Vital Signs: Vital Signs: Last Vital Signs Temp 99.5 F 01/31/23 16:43 Pulse 97 01/31/23 16:43 Resp 18 01/31/23 16:43 BP 134/80 01/31/23 16:43 Pulse Ox 96 01/31/23 16:43 O2 Del Method Room Air 01/31/23 16:43 BMI result Body Mass Index 34.6 Const: General: cooperative, healthy appearing, comfortable and no acute distress Orientation/consciousness: patient oriented x3 Limitations: no limitations HEENT: Head: Yes normal to inspection Ears: hearing grossly normal bilaterally, TM normal on the right, EAC's normal, mastoids normal, no periauricular adenopathy and unable to visualize TM (d/t cerumen) General nose exam: Normal external nose present Face and sinus: Yes normal facial exam Mouth: Normal oral and palatal mucosa present Throat: Yes posterior oropharynx normal Eyes: General: appearance normal, both eyes and all related structures Pupils: Equal, round and reactive pupils present Neck: Neck: Yes normal visual inspection, Yes full ROM, Yes no lymphadenopathy and Yes no meningeal signs Chest: Chest palpation & inspection: normal inspection of the chest Resp: Effort & Inspection: normal respiratory effort Auscultation: clear to auscultation bilaterally Cardio: Rate: regular rate Rhythm: regular rhythm Peripheral pulses: Peripheral pulses 2+ throughout GI: Inspection: Yes normal to inspection Palpation (GI): Soft to palpation and nontender Auscultation: normal bowel sounds Back/Spine/Pelvis: Thoracic/Lumbar Spine: thoracic and lumbar spine normal to inspection Skin: General skin exam: no rashes or lesions noted Neuro: General: patient oriented x3, no meningeal signs, no focal motor deficits and normal sensation to monofilament Cranial nerves: Yes Equal, round and reactive pupils present Cognition (Neuro): normal cognition Speech: No Abnormal speech present Gait exam (Neuro): Normal gait present Motor exam (neuro): 5/5 motor strength present throughout Extrem: General: Yes normal to inspection Medical Decision Making Medical Decision Making MDM Narrative: Patient is a 22 year old female with a PMH of MDD who presents to the ED due to left ear pain. She reports that she had a sore throat and noticed some ear pain the end of last week, which prompted her to see her PCP. By the time she saw her PCP, her sore throat had resolved but she was prescribed azithromycin 250 mg x 5 days and oral ciprofloxacin 500 mg x about a week. She reports that the antibiotics did not alleviate her symptoms. She also experiences decreased hearing in her left ear and describes it as if she's under water. Patient denies experiencing a fever or drainage from the affected ear. Unable to visualize TM initailly d/t cerumen impaction. after the patient's ear was flushed there appears to be a TM perforation at the 6 o clock position with surrounding purulent drainage. patient will be given oral antibiotics and ear drops with recommendations to follow-up with ENT outpatient. Differential Diagnosis Differential Diagnoses: The differential diagnosis associated with the presentation includes No evidence of mastoiditis No evidence of malignant otitis externa Prescription Management I considered prescription management with: Antibiotic see discussion above Discharge Plan Discharge Clinical Impression: Perforated eardrum Patient Disposition: Home, Self-Care Instructions: Ruptured Eardrum (ED) Additional Instructions: you may also try [facility] on [address] and [place] their phone number is [phone] Prescriptions: New ofloxacin 0.3 % drops 10 drp otic (ears) DAILY 7 Days Qty: 10 0RF clindamycin HCl 150 mg capsule 150 mg PO TID Qty: 21 0RF No Action clonidine HCl 0.1 mg Tablet 0.1 mg PO Q4H PRN (Reason: anxiety) 30 Days Qty: 90 1RF Protocol: Hold for SBP< HOLD for SBP < : 90 bupropion HCl 300 mg Tablet Extended Release 24 Hr 300 mg PO DAILY 30 Days Qty: 30 1RF Referrals: Dano Orozco [Physician] - 1 week
== END 2023-01-31 18:26 | disposition home or self-care (01) ==
PROVIDERS: Emergency Provider Emergency Medicine Emergency Medical Services; PCP Internal Medicine
DX: H72.92 Unspecified perforation of tympanic membrane, left ear (principal); H92.02 Otalgia, left ear; J02.9 Acute pharyngitis, unspecified; F12.90 Cannabis use, unspecified, uncomplicated
CPT/HCPCS: 69209; 99282; 99283

== ENCOUNTER 2023-02-02 13:21 | Outpatient (REF) | payer OTHER, SELFPAY | END 2023-02-02 13:22 | disposition home or self-care (01) | LOC: HO.LNP 13:21 | PROVIDERS: Visit Provider Otolaryngology | DX: B36.9 Superficial mycosis, unspecified (principal) | CPT/HCPCS: 87102; 87106; 87107 ==